=== PATIENT | male | born 1975 | race Caucasian/White ===

== ENCOUNTER → 2022-08-12 | Outpatient (CLI) | payer OTHER, SELFPAY ==
[2022-08-12 09:00] LABS: PSA,Total - Annual Screen 0.49 ng/mL (0.00-4.00); Thyroid Stim Hormone (TSH) 1.69 uIU/mL (0.358-3.74)
[2022-08-12 10:04] LABS: Hepatitis C Antibody Non-Reactive (Nonreactive)
== END | disposition home or self-care (01) ==
PROVIDERS: PCP Family Medicine; Referring Provider Family Medicine; Visit Provider Family Medicine
DX: Z00.00 Encounter for general adult medical examination without abnormal findings (principal); Z13.1 Encounter for screening for diabetes mellitus; Z12.5 Encounter for screening for malignant neoplasm of prostate; E78.2 Mixed hyperlipidemia
CPT/HCPCS: 36415; 84153; 84443; 86803; G0103

== ENCOUNTER → 2023-02-22 | Outpatient (CLI) | payer OTHER, SELFPAY ==
--- NOTE | 2023-02-22 11:48 | RAD_ITS ---
EXAM: XR LEFT SHOULDER COMPLETE, 2 OR MORE VIEWS CLINICAL INDICATION: PAIN LEFT SHOULDER TECHNIQUE: Two or more views of the left shoulder. This report was created using [employer] report generation technology. COMPARISON: None. FINDINGS: BONES/JOINTS: Unremarkable. No acute fracture. No subluxation. Normal alignment. Preservation of the joint space. No sclerotic or destructive changes observed. SOFT TISSUES: Unremarkable. No soft tissue swelling or gas. No radiopaque foreign body. RAD/Shoulder min 2 Views IMPRESSION: Negative left shoulder x-rays. Electronically Signed: Lauri Scott MD at 23:53 EDT ,
== END | disposition home or self-care (01) ==
LOC: RAD 11:45
PROVIDERS: PCP Family Medicine; Referring Provider Family Medicine; Visit Provider Family Medicine
DX: M77.8 Other enthesopathies, not elsewhere classified (principal); M25.512 Pain in left shoulder
CPT/HCPCS: 73030

== ENCOUNTER → 2024-07-23 | Outpatient (CLI) | payer OTHER, SELFPAY ==
[2024-07-23 09:38] LABS: ALB/GLOB Ratio 1.1 RATIO (0.9-2.4); AST(SGOT) 22 U/L (15-37); Alanine Aminotransfer ALT/SGPT 52 U/L (16-61); Albumin, Serum 4.1 g/dL (3.2-5.0); Alkaline Phosphatase 79 U/L (45-117); Anion Gap 5 (5-15); BUN 16 mg/dL (7-18); Calcium,Total 9.5 mg/dL (8.5-10.1); Chloride 106 mmol/L (98-107); Cholesterol 272 mg/dL (200); Creatinine, Serum 1.07 mg/dL (0.70-1.30); EST Glomerular Filtration Rate 79 mL/min (>60); Est Glom Filt Rate - Afr Amer 95 mL/min (>60); Globulin 3.6 g/dL (2.2-4.2); Glucose 100 mg/dL (74-106); High Density Lipoprotein 55 mg/dL; PSA,Total - Annual Screen 0.59 ng/mL (0.00-4.00); Protein, Total 7.7 g/dL (6.4-8.2); Sodium Level 139 mmol/L (136-145); Triglycerides 142 mg/dL; Very Low Density Lipoprotein 28 mg/dL (5-40)
== END | disposition home or self-care (01) ==
PROVIDERS: PCP Family Medicine; Referring Provider Family Medicine; Visit Provider Family Medicine
DX: Z00.00 Encounter for general adult medical examination without abnormal findings (principal); Z13.1 Encounter for screening for diabetes mellitus; E78.2 Mixed hyperlipidemia; Z12.5 Encounter for screening for malignant neoplasm of prostate
CPT/HCPCS: 36415; 80053; 80061; 84153; 84443; G0103

== ENCOUNTER → 2025-07-08 | Outpatient (CLI) | payer OTHER, SELFPAY ==
--- OUTSIDE RECORDS SUMMARY | 2025-07-08 06:20 | XMS RPT_ITS | CCD ---
Author Organization [facility] Care Team Providers Care Firing Pin Gauger Name Role Phone Mary Avila Referring Unavailable Mary Avila Attending Unavailable Mary Avila Primary Care Unavailable Assessment, Health Risk Attending Unavaila ble Mary Avila Primary Care Unavailable Assessment, Health Risk Referring Unavaila ble Results Test Name Value Interpretation Reference Range Facil itmilana CBC, Employeeon 07-23-2024 Absolute Lymph 1.85 X10 3/uL Normal 0.83-4.51 [facility] Comment on above: Order Comment: PLEAS E SEND TO Performed By: #### L 500.2900, L100.0200, L400.0100 #### [facility] [address] [place], [address] Absolute Neut 3.4 X10 3/uL Normal 2.0-7.7 [facility] Comment on above: Order Comment: PLEAS E SEND TO Performed By: #### L 500.2900, L100.0200, L400.0100 #### [facility] [address] [place], [address] Basophils/100 WBC (Bld) 1.6 % High 0-1 [facility] Comment on above: Order Comment: PLEAS E SEND TO Performed By: #### L 500.2900, L100.0200, L400.0100 #### [facility] [address] [place], [address] Eosinophils/100 WBC (Bld) 3.6 % Normal 0-5 [facility] Comment on above: Order Comment: PLEAS E SEND TO Performed By: #### L 500.2900, L100.0200, L400.0100 #### [facility] [address] [place], [address] Erythrocyte distribution width (RBC) [Ratio] 11.7 % Normal 11.6-14.6 [facility] Comment on above: Order Comment: PLEAS E SEND TO Performed By: #### L 500.2900, L100.0200, L400.0100 #### [facility] [address] [place], [address] Hematocrit (Bld) [Volume fraction] 43.9 % Normal 40-54 [facility] Comment on above: Order Comment: PLEAS E SEND TO Performed By: #### L 500.2900, L100.0200, L400.0100 #### [facility] [address] [place], [address] Hemoglobin (Bld) [Mass/Vol] 15.1 g/dL Normal 13.0-16.5 [facility] Comment on above: Order Comment: PLEAS E SEND TO Performed By: #### L 500.2900, L100.0200, L400.0100 #### [facility] [address] [place], [address] Lymphocytes/100 WBC (Bld) 28.9 % Normal 19-41 [facility] Comment on above: Order Comment: PLEAS E SEND TO Performed By: #### L 500.2900, L100.0200, L400.0100 #### [facility] [address] [place], [address] MCH (RBC) [Entitic mass] 31.2 pg Normal 27.0-32.0 [facility] Comment on above: Order Comment: PLEAS E SEND TO Performed By: #### L 500.2900, L100.0200, L400.0100 #### [facility] [address] [place], [address] MCHC (RBC) [Mass/Vol] 34.4 g/dL Normal 32-36 [facility] Comment on above: Order Comment: PLEAS E SEND TO Performed By: #### L 500.2900, L100.0200, L400.0100 #### [facility] [address] [place], [address] MCV (RBC) [Entitic vol] 90.7 fL Normal 80-94 [facility] Comment on above: Order Comment: PLEAS E SEND TO Performed By: #### L 500.2900, L100.0200, L400.0100 #### [facility] [address] [place], [address] Monocytes/100 WBC (Bld) 12.8 % High 0-10 [facility] Comment on above: Order Comment: PLEAS E SEND TO Performed By: #### L 500.2900, L100.0200, L400.0100 #### [facility] [address] [place], [address] Neutrophils/100 WBC (Bld) 52.6 % Normal 47-70 [facility] Comment on above: Order Comment: PLEAS E SEND TO Performed By: #### L 500.2900, L100.0200, L400.0100 #### [facility] [address] [place], [address] NRBC # 0.00 10 3/uL Normal 0-5 [facility] Comment on above: Order Comment: PLEAS E SEND TO Performed By: #### L 500.2900, L100.0200, L400.0100 #### [facility] [address] [place], [address] Nucleated RBC (Bld) [#/Vol] 0 10*3/uL Normal 0-5 [facility] Comment on above: Order Comment: PLEAS E SEND TO Performed By: #### L 500.2900, L100.0200, L400.0100 #### [facility] [address] [place], [address] Platelet mean volume (Bld) [Entitic vol] 10.6 fL Normal 6.2-12.0 [facility] Comment on above: Order Comment: PLEAS E SEND TO Performed By: #### L 500.2900, L100.0200, L400.0100 #### [facility] [address] [place], [address] Platelets (Bld) [#/Vol] 205 10*3/uL Normal 150-450 [facility] Comment on above: Order Comment: PLEAS E SEND TO Performed By: #### L 500.2900, L100.0200, L400.0100 #### [facility] [address] [place], [address] RBC (Bld) [#/Vol] 4.84 10*6/uL Normal 4.6-6.2 [facility] Comment on above: Order Comment: PLEAS E SEND TO Performed By: #### L 500.2900, L100.0200, L400.0100 #### [facility] [address] [place], [address] RDW SD 38.7 fl Normal 35.1-43.9 [facility] Comment on above: Order Comment: PLEAS E SEND TO Performed By: #### L 500.2900, L100.0200, L400.0100 #### [facility] [address] [place], [address] WBC (Bld) [#/Vol] 6.4 10*3/uL Normal 4.4-11.0 [facility] Comment on above: Order Comment: ALYSSA E SEND TO Performed By: #### L 500.2900, L100.0200, L400.0100 #### [facility] [address] [place], [address] Comprehensive Metabolic Prof ilon 07-23-2024 Albumin [Mass/Vol] 4.1 g/dL Normal 3.2-5.0 [facility] Comment on above: Order Comment: ALYSSA Mccartney CANCELL WHAT IS IN [facility] AND SEND TO Performed By: #### L 500.4050, L501.9520, L501.9910, L500.4100 #### [facility] [address] [place], [address] Albumin/Globulin [Mass ratio] 1.1 {ratio} Normal 0.9-2.4 [facility] Comment on above: Order Comment: PLEAS E CANCELL WHAT IS IN [facility] AND SEND TO Performed By: #### L 500.4050, L501.9520, L501.9910, L500.4100 #### [facility] [address] [place], [address] ALK P 79 U/L Normal 45-117 [facility] Comment on above: Order Comment: PLEAS E CANCELL WHAT IS IN [facility] AND SEND TO Performed By: #### L 500.4050, L501.9520, L501.9910, L500.4100 #### [facility] [address] [place], [address] ALT [Catalytic activity/Vol] 52 U/L Normal 16-61 [facility] Comment on above: Order Comment: PLEAS E CANCELL WHAT IS IN [facility] AND SEND TO Performed By: #### L 500.4050, L501.9520, L501.9910, L500.4100 #### [facility] [address] [place], [address] AST [Catalytic activity/Vol] 22 U/L Normal 15-37 [facility] Comment on above: Order Comment: PLEAS E CANCELL WHAT IS IN [facility] AND SEND TO Performed By: #### L 500.4050, L501.9520, L501.9910, L500.4100 #### [facility] [address] [place], [address] Bilirubin [Mass/Vol] 0.40 mg/dL Normal 0.20-1.00 [facility] Comment on above: Order Comment: PLEAS E CANCELL WHAT IS IN [facility] AND SEND TO Result Comment: For patients on eltrombopag therapy, use of Dimension [place] TBIL is not recommended. Performed By: #### L 500.4050, L501.9520, L501.9910, L500.4100 #### [facility] [address] [place], [address] BUN/CRE 15.0 RATIO Normal 10-20 [facility] Comment on above: Order Comment: PLEAS E CANCELL WHAT IS IN [facility] AND SEND TO Performed By: #### L 500.4050, L501.9520, L501.9910, L500.4100 #### [facility] [address] [place], [address] CA,Total 9.5 mg/dL Normal 8.5-10.1 [facility] Comment on above: Order Comment: RONALAS E CANCELL WHAT IS IN [facility] AND SEND TO Performed By: #### L 500.4050, L501.9520, L501.9910, L500.4100 #### [facility] [address] [place], [address] Chloride [Moles/Vol] 106 mmol/L Normal 98-107 [facility] Comment on above: Order Comment: ALYSSA Mccartney CANCELL WHAT IS IN [facility] AND SEND TO Performed By: #### L 500.4050, L501.9520, L501.9910, L500.4100 #### [facility] [address] [place], [address] CO2 [Moles/Vol] 28.0 mmol/L Normal 21.0-32.0 [facility] Comment on above: Order Comment: PLEAS E CANCELL WHAT IS IN [facility] AND SEND TO Performed By: #### L 500.4050, L501.9520, L501.9910, L500.4100 #### [facility] [address] [place], [address] Creatinine [Mass/Vol] 1.07 mg/dL Normal 0.70-1.30 [facility] Comment on above: Order Comment: ALYSSA Mccartney CANCELL WHAT IS IN [facility] AND SEND TO Result Comment: The validity of the calculated GFR GFRAA in patients over 70 years has not been determined. Clinical correlation is essential. Performed By: #### L 500.4050, L501.9520, L501.9910, L500.4100 #### [facility] [address] [place], [address] EST GFR - AA 95 mL/min Normal >60 [facility] Comment on above: Order Comment: ALYSSA Mccartney CANCELL WHAT IS IN [facility] AND SEND TO Result Comment: Afri can [place] GFR Calc Performed By: #### L 500.4050, L501.9520, L501.9910, L500.4100 #### [facility] [address] [place], [address] GAP 5 Normal 5-15 [facility] Comment on above: Order Comment: PLEAS E CANCELL WHAT IS IN [facility] AND SEND TO Performed By: #### L 500.4050, L501.9520, L501.9910, L500.4100 #### [facility] [address] [place], [address] GFR/1.73 sq M.predicted among non-blacks MDRD (S/P/Bld) [Vol rate/Area] 79 mL/min/{1.73_m2} Normal >60 [facility] Comment on above: Order Comment: ALYSSA Mccartney CANCELL WHAT IS IN [facility] AND SEND TO Result Comment: Non- GFR Calc Performed By: #### L 500.4050, L501.9520, L501.9910, L500.4100 #### [facility] [address] [place], [address] Globulin (S) [Mass/Vol] 3.6 g/dL Normal 2.2-4.2 [facility] Comment on above: Order Comment: ALYSSA Mccartney CANCELL WHAT IS IN [facility] AND SEND TO Performed By: #### L 500.4050, L501.9520, L501.9910, L500.4100 #### [facility] [address] [place], [address] Glucose [Mass/Vol] 100 mg/dL Normal 74-106 [facility] Comment on above: Order Comment: ALYSSA Mccartney CANCELL WHAT IS IN [facility] AND SEND TO Result Comment: Fast ing Glucose result from 100 to 125 mg/dL suggests IMPAIRED HOMEOSTASIS per A.D.A. criteria. Performed By: #### L 500.4050, L501.9520, L501.9910, L500.4100 #### [facility] [address] [place], [address] Potassium [Moles/Vol] 4.0 mmol/L Normal 3.5-5.1 [facility] Comment on above: Order Comment: ALYSSA Mccartney CANCELL WHAT IS IN [facility] AND SEND TO Performed By: #### L 500.4050, L501.9520, L501.9910, L500.4100 #### [facility] [address] [place], [address] Sodium [Moles/Vol] 139 mmol/L Normal 136-145 [facility] Comment on above: Order Comment: PLEAS E CANCELL WHAT IS IN [facility] AND SEND TO Performed By: #### L 500.4050, L501.9520, L501.9910, L500.4100 #### [facility] [address] [place], [address] T PROT 7.7 g/dL Normal 6.4-8.2 [facility] Comment on above: Order Comment: PLEAS E CANCELL WHAT IS IN [facility] AND SEND TO Performed By: #### L 500.4050, L501.9520, L501.9910, L500.4100 #### [facility] [address] [place], [address] Urea nitrogen [Mass/Vol] 16 mg/dL Normal 7-18 [facility] Comment on above: Order Comment: PLEAS E CANCELL WHAT IS IN [facility] AND SEND TO Performed By: #### L 500.4050, L501.9520, L501.9910, L500.4100 #### [facility] [address] [place], [address] [employer] 4 Albumin [Mass/Vol] 4.2 g/dL Normal 3.2-5.0 [facility] Comment on above: Order Comment: PLEAS E SEND TO Performed By: #### L 500.2900, L100.0200, L400.0100 #### [facility] [address] [place], [address] Albumin/Globulin [Mass ratio] 1.2 {ratio} Normal 0.9-2.4 [facility] Comment on above: Order Comment: PLEAS E SEND TO Performed By: #### L 500.2900, L100.0200, L400.0100 #### [facility] [address] [place], [address] ALK P 78 U/L Normal 45-117 [facility] Comment on above: Order Comment: ALYSSA E SEND TO Performed By: #### L 500.2900, L100.0200, L400.0100 #### [facility] [address] [place], [address] ALT [Catalytic activity/Vol] 53 U/L Normal 16-61 [facility] Comment on above: Order Comment: ALYSSA E SEND TO Performed By: #### L 500.2900, L100.0200, L400.0100 #### [facility] [address] [place], [address] AST [Catalytic activity/Vol] 25 U/L Normal 15-37 [facility] Comment on above: Order Comment: ALYSSA E SEND TO Performed By: #### L 500.2900, L100.0200, L400.0100 #### [facility] [address] [place], [address] Bilirubin [Mass/Vol] 0.40 mg/dL Normal 0.20-1.00 [facility] Comment on above: Order Comment: PLEJHONATAN E SEND TO Result Comment: For patients on eltrombopag therapy, use of Dimension [place] TBIL is not recommended. Performed By: #### L 500.2900, L100.0200, L400.0100 #### [facility] [address] [place], [address] Bilirubin.direct [Mass/Vol] 0.14 mg/dL Normal 0.00-0.30 [facility] Comment on above: Order Comment: ALYSSA E SEND TO Performed By: #### L 500.2900, L100.0200, L400.0100 #### [facility] [address] [place], [address] BUN/CRE 15.2 RATIO Normal 10-20 [facility] Comment on above: Order Comment: PLEAS E SEND TO Performed By: #### L 500.2900, L100.0200, L400.0100 #### [facility] [address] [place], [address] CA,Total 9.5 mg/dL Normal 8.5-10.1 [facility] Comment on above: Order Comment: PLEAS E SEND TO Performed By: #### L 500.2900, L100.0200, L400.0100 #### [facility] [address] [place], [address] Chloride [Moles/Vol] 105 mmol/L Normal 98-107 [facility] Comment on above: Order Comment: PLEAS E SEND TO Performed By: #### L 500.2900, L100.0200, L400.0100 #### [facility] [address] [place], [address] CHOL:HDL 4.70 Normal [facility] Comment on above: Order Comment: PLEAS E SEND TO Performed By: #### L 500.2900, L100.0200, L400.0100 #### [facility] [address] [place], [address] Cholesterol [Mass/Vol] 263 mg/dL High 200 [facility] Comment on above: Order Comment: RONALAS E SEND TO Result Comment: <200 mg/dL Desirable 200-240 mg/dL Borderline >240 mg/dL High Risk Performed By: #### L 500.2900, L100.0200, L400.0100 #### [facility] [address] [place], [address] Cholesterol in HDL [Mass/Vol] 56 mg/dL Normal [facility] Comment on above: Order Comment: ALYSSA Mccartney SEND TO Result Comment: The drugs N-Acetylcysteine and Metamizole may falsely depress this assay. Reference Range HDL <40 mg/dL Low HDL Cholesterol HDL >or= 60 mg/dL High HDL Cholesterol Performed By: #### L 500.2900, L100.0200, L400.0100 #### [facility] [address] [place], [address] Cholesterol in LDL [Mass/Vol] 179 mg/dL High 0-130 [facility] Comment on above: Order Comment: ALYSSA Mccartney SEND TO Performed By: #### L 500.2900, L100.0200, L400.0100 #### [facility] [address] [place], [address] Cholesterol in VLDL [Mass/Vol] 28 mg/dL Normal 5-40 [facility] Comment on above: Order Comment: ALYSSA Mccartney SEND TO Performed By: #### L 500.2900, L100.0200, L400.0100 #### [facility] [address] [place], [address] CO2 [Moles/Vol] 27.0 mmol/L Normal 21.0-32.0 [facility] Comment on above: Order Comment: ALYSSA Mccartney SEND TO Performed By: #### L 500.2900, L100.0200, L400.0100 #### [facility] [address] [place], [address] Creatinine [Mass/Vol] 1.05 mg/dL Normal 0.70-1.30 [facility] Comment on above: Order Comment: ALYSSA Mccartney SEND TO Result Comment: The validity of the calculated GFR GFRAA in patients over 70 years has not been determined. Clinical correlation is essential. Performed By: #### L 500.2900, L100.0200, L400.0100 #### [facility] [address] [place], [address] EST GFR - AA 97 mL/min Normal >60 [facility] Comment on above: Order Comment: ALYSSA Mccartney SEND TO Result Comment: Afri can [place] GFR Calc Performed By: #### L 500.2900, L100.0200, L400.0100 #### [facility] [address] [place], [address] GAP 6 Normal 5-15 [facility] Comment on above: Order Comment: ALYSSA Mccartney SEND TO Performed By: #### L 500.2900, L100.0200, L400.0100 #### [facility] [address] [place], [address] GFR/1.73 sq M.predicted among non-blacks MDRD (S/P/Bld) [Vol rate/Area] 81 mL/min/{1.73_m2} Normal >60 [facility] Comment on above: Order Comment: ALYSSA Mccartney SEND TO Result Comment: Non- GFR Calc Performed By: #### L 500.2900, L100.0200, L400.0100 #### [facility] [address] [place], [address] Globulin (S) [Mass/Vol] 3.5 g/dL Normal 2.2-4.2 [facility] Comment on above: Order Comment: ALYSSA Mccartney SEND TO Performed By: #### L 500.2900, L100.0200, L400.0100 #### [facility] [address] [place], [address] Glucose [Mass/Vol] 103 mg/dL Normal 74-106 [facility] Comment on above: Order Comment: ALYSSA Mccartney SEND TO Result Comment: Fast ing Glucose result from 100 to 125 mg/dL suggests IMPAIRED HOMEOSTASIS per A.D.A. criteria. Performed By: #### L 500.2900, L100.0200, L400.0100 #### [facility] [address] [place], [address] LDH 177 U/L Normal 87-241 [facility] Comment on above: Order Comment: ALYSSA E SEND TO Performed By: #### L 500.2900, L100.0200, L400.0100 #### [facility] [address] [place], [address] Phosphate [Mass/Vol] 4.0 mg/dL Normal 2.5-4.9 [facility] Comment on above: Order Comment: ALYSSA E SEND TO Performed By: #### L 500.2900, L100.0200, L400.0100 #### [facility] [address] [place], [address] Potassium [Moles/Vol] 4.0 mmol/L Normal 3.5-5.1 [facility] Comment on above: Order Comment: ALYSSA E SEND TO Performed By: #### L 500.2900, L100.0200, L400.0100 #### [facility] [address] [place], [address] Sodium [Moles/Vol] 138 mmol/L Normal 136-145 [facility] Comment on above: Order Comment: ALYSSA E SEND TO Performed By: #### L 500.2900, L100.0200, L400.0100 #### [facility] [address] [place], [address] T PROT 7.7 g/dL Normal 6.4-8.2 [facility] Comment on above: Order Comment: ALYSSA Mccartney SEND TO Performed By: #### L 500.2900, L100.0200, L400.0100 #### [facility] [address] [place], [address] Triglyceride [Mass/Vol] 140 mg/dL Normal [facility] Comment on above: Order Comment: ALYSSA Mccartney SEND TO Result Comment: The drugs N-Acetylcysteine and Metamizole may falsely depress this assay. Serum Triglycerides Reference Interval Normal <150 mg/dL Borderline high 150 - 199 mg/dL High 200 - 499 mg/dL Very High > or = 500 mg/dL Performed By: #### L 500.2900, L100.0200, L400.0100 #### [facility] [address] [place], [address] Urea nitrogen [Mass/Vol] 16 mg/dL Normal 7-18 [facility] Comment on above: Order Comment: ALYSSA Mccartney SEND TO Performed By: #### L 500.2900, L100.0200, L400.0100 #### [facility] [address] [place], [address] URIC 5.9 mg/dL Normal 3.5-7.2 [facility] Comment on above: Order Comment: ALYSSA Mccartney SEND TO Result Comment: The drugs N-Acetylcysteine and Metamizole may falsely depress this assay. Performed By: #### L 500.2900, L100.0200, L400.0100 #### [facility] [address] [place], [address] Lipid Profileon 07-23-2024 Cholesterol [Mass/Vol] 272 mg/dL High 200 [facility] Comment on above: Order Comment: ALYSSA Mccartney CANCELL WHAT IS IN [facility] AND SEND TO Result Comment: <200 mg/dL Desirable 200-240 mg/dL Borderline >240 mg/dL High Risk Performed By: #### L 500.4050, L501.9520, L501.9910, L500.4100 #### [facility] [address] [place], [address] Cholesterol in HDL [Mass/Vol] 55 mg/dL Normal [facility] Comment on above: Order Comment: ALYSSA Mccartney CANCELL WHAT IS IN [facility] AND SEND TO Result Comment: The drugs N-Acetylcysteine and Metamizole may falsely depress this assay. Reference Range HDL <40 mg/dL Low HDL Cholesterol HDL >or= 60 mg/dL High HDL Cholesterol Performed By: #### L 500.4050, L501.9520, L501.9910, L500.4100 #### [facility] [address] [place], [address] Cholesterol in LDL [Mass/Vol] 189 mg/dL High 0-130 [facility] Comment on above: Order Comment: ALYSSA Mccartney CANCELL WHAT IS IN [facility] AND SEND TO Performed By: #### L 500.4050, L501.9520, L501.9910, L500.4100 #### [facility] [address] [place], [address] Cholesterol in VLDL [Mass/Vol] 28 mg/dL Normal 5-40 [facility] Comment on above: Order Comment: ALYSSA Mccartney CANCELL WHAT IS IN [facility] AND SEND TO Performed By: #### L 500.4050, L501.9520, L501.9910, L500.4100 #### [facility] [address] [place], [address] Triglyceride [Mass/Vol] 142 mg/dL Normal [facility] Comment on above: Order Comment: ALYSSA Mccartney CANCELL WHAT IS IN [facility] AND SEND TO Result Comment: The drugs N-Acetylcysteine and Metamizole may falsely depress this assay. Serum Triglycerides Reference Interval Normal <150 mg/dL Borderline high 150 - 199 mg/dL High 200 - 499 mg/dL Very High > or = 500 mg/dL Performed By: #### L 500.4050, L501.9520, L501.9910, L500.4100 #### [facility] [address] [place], [address] PSA,Total - Annual Screenon 07-23-2024 PSA,TOT SCREEN 0.59 ng/mL Normal 0.00-4.00 [facility] Comment on above: Order Comment: ALYSSA Mccartney CANCELL WHAT IS IN [facility] AND SEND TO Result Comment: This test was performed using the TPSA assay method for the [employer] chemistry system. Values obtained with different assay methods cannot be used interchangably. When changing PSA assays in the course of monitoring a patient, additional sequential testing should be carried out to confirm baseline values. Performed By: #### L 500.4050, L501.9520, L501.9910, L500.4100 #### [facility] [address] [place], [address] Thyroid Stim Hormone (TSH)on 07-23-2024 TSH 2.410 uIU/mL Normal 0.358-3.740 [facility] Comment on above: Order Comment: ALYSSA Mccartney CANCELL WHAT IS IN [facility] AND SEND TO Performed By: #### L 500.4050, L501.9520, L501.9910, L500.4100 #### [facility] [address] [place], [address] Urinalysis, Employeeon 07-23 BILIRUBIN URINE Normal Negative [facility] Comment on above: Order Comment: ALYSSA Mccartney SEND TO CLEAN CATCH Result Comment: NOT WANTED Performed By: #### L 500.2900, L100.0200, L400.0100 #### [facility] [address] [place], [address] Clarity (U) Normal Clear [facility] Comment on above: Order Comment: ALYSSA Mccartney SEND TO CLEAN CATCH Result Comment: NOT WANTED Performed By: #### L 500.2900, L100.0200, L400.0100 #### [facility] [address] [place], [address] Color (U) Normal Yellow [facility] Comment on above: Order Comment: ALYSSA E SEND TO DR.MCCLAY ОЛЬГА CARR Result Comment: NOT WANTED Performed By: #### L 500.2900, L100.0200, L400.0100 #### [facility] [address] [place], [address] GLUCOSE, UR Normal Normal [facility] Comment on above: Order Comment: PLEJHONATAN E SEND TO DR.MCCLAY ROLON CATCH Result Comment: NOT WANTED Performed By: #### L 500.2900, L100.0200, L400.0100 #### [facility] [address] [place], [address] KETONE UR Normal Negative [facility] Comment on above: Order Comment: ALYSSA E SEND TO DR.MCCLAY ОЛЬГА CARR Result Comment: NOT WANTED Performed By: #### L 500.2900, L100.0200, L400.0100 #### [facility] [address] [place], [address] LEUK ESTERASE Normal Negative [facility] Comment on above: Order Comment: ALYSSA Mccartney SEND TO DR.MCCLAY ОЛЬГА CARR Result Comment: NOT WANTED Performed By: #### L 500.2900, L100.0200, L400.0100 #### [facility] [address] [place], [address] Nitrite Ql (U) Normal Negative [facility] Comment on above: Order Comment: ALYSSA E SEND TO DR.MCCLAY ROLON CATCH Result Comment: NOT WANTED Performed By: #### L 500.2900, L100.0200, L400.0100 #### [facility] [address] [place], [address] OCCULT BLOOD-UR Normal Negative [facility] Comment on above: Order Comment: ALYSSA Mccartney SEND TO DR.MCCLAY ROLON CATCH Result Comment: NOT WANTED Performed By: #### L 500.2900, L100.0200, L400.0100 #### [facility] [address] [place], [address] pH UR Normal 5.0 - 8.0 [facility] Comment on above: Order Comment: PLEAS E SEND TO DR.MCCLAY ROLON CATCH Result Comment: NOT WANTED Performed By: #### L 500.2900, L100.0200, L400.0100 #### [facility] [address] [place], [address] PROT DIPSTX Normal Negative [facility] Comment on above: Order Comment: PLEAS E SEND TO DR.MCCLAY ROLON CATCH Result Comment: NOT WANTED Performed By: #### L 500.2900, L100.0200, L400.0100 #### [facility] [address] [place], [address] SP.GR. DIPSTX Normal 1.002-1.030 [facility] Comment on above: Order Comment: PLEAS E SEND TO DR.MCCLAY ROLON CATCH Result Comment: NOT WANTED Performed By: #### L 500.2900, L100.0200, L400.0100 #### [facility] [address] [place], [address] UR Preservative Normal [facility] Comment on above: Order Comment: PLEAS E SEND TO DR.MCCLAY ROLON CATCH Result Comment: NOT WANTED Performed By: #### L 500.2900, L100.0200, L400.0100 #### [facility] [address] [place], [address] UROBILI Normal Normal [facility] Comment on above: Order Comment: PLEAS E SEND TO DR.MCCLAY ROLON CATCH Result Comment: NOT WANTED Performed By: #### L 500.2900, L100.0200, L400.0100 #### [facility] [address] [place], [address] COVID-19 virus antigen assay Ordered By: Satnam Ordonez on 07-14-2023 SARS-CoV-2 (COVID-19) Ag IA.rapid Ql (Resp) [facility] Absolute lymphocyte counton 08-12-2022 Lymphocytes Auto (Unsp spec) [#/Vol] 1.69 10*3/uL 0.83-4.51 [facility] Work Phone: Absolute reticulocyte counto n 08-12-2022 Reticulocytes (Bld) [#/Vol] 0.00 10*3/uL 0-5 [facility] Work Phone: Basophil percentageon 2021 Basophil percentage 3.8 mg/dL 2.5-4.9 [facility] Work Phone: Bilirubin [Mass/Vol] 0.80 mg/dL 0.20-1.00 [facility] Work Phone: Comment on above: For patients on eltr ombopag therapy, use of Dimension [place] TBIL is not recommended. Chloride [Moles/Vol] 106 mmol/L 98-107 [facility] Work Phone: Cholesterol [Mass/Vol] 233 mg/dL <200 [facility] Work Phone: Comment on above: <200 mg/dL Desirable 200-240 mg/dL Borderline >240 mg/dL High Risk Glucose [Mass/Vol] 97 mg/dL 74-106 [facility] Work Phone: Neutrophils (Bld) [#/Vol] 2.8 10*3/uL 2.0-7.7 [facility] Work Phone: Potassium [Moles/Vol] 4.0 mmol/L 3.5-5.1 [facility] Work Phone: Protein [Mass/Vol] 7.7 g/dL 6.4-8.2 [facility] Work Phone: Sodium [Moles/Vol] 140 mmol/L 136-145 [facility] Work Phone: Triglyceride [Mass/Vol] 147 mg/dL <199 [facility] Work Phone: Comment on above: The drugs N-Acetylcy steine and Metamizole may falsely depress this assay.Serum Triglycerides Reference Interval Normal <150 mg/dL Borderline high 150 - 199 mg/dL High 200 - 499 mg/dL Very High > or = 500 mg/dL WBC (Bld) [#/Vol] 5.4 10*3/uL 4.4-11.0 [facility] Work Phone: Bilirubin Test strip Ql (U)o n 08-12-2022 Bilirubin Ql (U) Negative Negative [facility] Work Phone: Blood erythrocytes count (nu mber/volume)on 08-12-2022 RBC (Bld) [#/Vol] 4.52 10*6/uL 4.6-6.2 [facility] Work Phone: Blood hemoglobin measurement (mass/volume)on 08-12-2022 Hemoglobin (Bld) [Mass/Vol] 15.0 g/dL 13.0-16.5 [facility] Work Phone: Blood platelet mean volumeon 08-12-2022 Platelet mean volume (Bld) [Entitic vol] 10.4 fL 6.2-12.0 [facility] Work Phone: Determination of erythrocyte mean corpuscular volume (MCV)on 08-12-2022 MCV (RBC) [Entitic vol] 91.8 fL 80-94 [facility] Work Phone: Direct bilirubinon 2 Bilirubin.direct [Mass/Vol] 0.18 mg/dL 0.00-0.30 [facility] Work Phone: Hematocrit Auto (Bld) [Volum e fraction]on 08-12-2022 Hematocrit (Bld) [Volume fraction] 41.5 % 40-54 [facility] Work Phone: Ketones Test strip Ql (U)on 08-12-2022 Ketones Ql (U) Negative Negative [facility] Work Phone: Laboratory - Chemistry and C hemistry - challengeon 08-12-2022 ALP [Catalytic activity/Vol] 68 U/L 45-117 [facility] Work Phone: ALT [Catalytic activity/Vol] 32 U/L 16-61 [facility] Work Phone: Cholesterol.total/Ch olesterol in HDL [Mass ratio] 3.70 {ratio} [facility] Work Phone: CO2 [Moles/Vol] 27.0 mmol/L 21.0-32.0 [facility] Work Phone: Globulin (S) [Mass/Vol] 3.5 g/dL 2.2-4.2 [facility] Work Phone: Urea nitrogen/Creatinine [Mass ratio] 15.6 mg/mg 10-20 [facility] Work Phone: Laboratory - Hematology and Cell countson 08-12-2022 Erythrocyte distribution width (RBC) [Entitic vol] 38.9 fL 35.1-43.9 [facility] Work Phone: Erythrocyte distribution width (RBC) [Ratio] 11.6 % 11.6-14.6 [facility] Work Phone: MCH (RBC) [Entitic mass] 33.2 pg 27.0-32.0 [facility] Work Phone: Nucleated RBC/100 WBC (Bld) [Ratio] 0 % 0-5 [facility] Work Phone: MCHC Auto (RBC) [Mass/Vol]on 08-12-2022 MCHC (RBC) [Mass/Vol] 36.1 g/dL 32-36 [facility] Work Phone: Nitrite Test strip Ql (U)on 08-12-2022 Nitrite Ql (U) Negative Negative [facility] Work Phone: No Panel Informationon 08-12 Estimated GFR (MDRD) Amer 109 mL/min >60 [facility] Work Phone: Comment on above: GFR Calc Estimated GFR (MDRD) Non-Af Amer 90 mL/min >60 [facility] Work Phone: Comment on above: Non- GFR Calc Hepatitis C Antibody Non-Reactive Nonreactive [facility] Work Phone: Comment on above: Non Reactive: < 0.8 Equivocal: >/= 0.8 to < 1.0 Reactive: >/= 1.0The [facility] recommends that a reactive/equivocal HCV antibody result be followed up by the HCV Nucleic Acid Amplificationtest (033749) Prostate Specific Antigen Screen 0.49 ng/mL 0.00-4.00 [facility] Work Phone: Comment on above: This test was perfor med using the TPSA assay method for [employer] chemistry system. Values obtained with differentassay methods cannot be used interchangably.When changing PSA assays in the course of monitoring apatient, additional sequential testing should be carriedout to confirm baseline values. Thyroid Stimulating Hormone (TSH) 1.69 uIU/mL 0.358-3.74 [facility] Work Phone: Platelets bldon 08-12-2022 Platelets (Bld) [#/Vol] 193 10*3/uL 150-450 [facility] Work Phone: Protein Test strip Ql (U)on 08-12-2022 Protein Ql (U) Negative Negative [facility] Work Phone: Segmented neutrophils/100 WB C Auto (Bld)on 08-12-2022 Segmented neutrophils/100 WBC (Bld) 51.9 % 47-70 [facility] Work Phone: Serum or plasma albumin cami urement (mass/volume)on 08-12-2022 Albumin [Mass/Vol] 4.2 g/dL 3.2-5.0 [facility] Work Phone: Serum or plasma albumin/glob ulin mass ratioon 08-12-2022 Albumin/Globulin [Mass ratio] 1.2 {ratio} 0.9-2.4 [facility] Work Phone: Serum or plasma calcium cami urement (mass/volume)on 08-12-2022 Calcium [Mass/Vol] 9.2 mg/dL 8.5-10.1 [facility] Work Phone: Serum or plasma cholesterol in HDL measurement (mass/volume)on 08-12-2022 Cholesterol in HDL [Mass/Vol] 63 mg/dL >40 [facility] Work Phone: Comment on above: The drugs N-Acetylcy steine and Metamizole may falsely depress this assay. Reference Range HDL <40 mg/dL Low HDL Cholesterol HDL >or= 60 mg/dL High HDL Cholesterol Serum or plasma cholesterol in VLDL measurement (mass/volume)on 08-12-2022 Cholesterol in VLDL [Mass/Vol] 29 mg/dL 5-40 [facility] Work Phone: Serum or plasma creatinine m easurement (mass/volume)on 08-12-2022 Creatinine [Mass/Vol] 0.96 mg/dL 0.70-1.30 [facility] Work Phone: Comment on above: The validity of the calculated GFR & GFRAA in patients over 70 years has not been determined. Clinical correlation is essential. Serum or plasma low density lipoprotein (LDL) cholesterol measurement (mass/volume)on 08-12-2022 Cholesterol in LDL [Mass/Vol] 141 mg/dL 0-130 [facility] Work Phone: Serum or plasma urea nitroge n measurement (mass/volume)on 08-12-2022 Urea nitrogen [Mass/Vol] 15 mg/dL 7-18 [facility] Work Phone: Serum or plasma uric acid me asurement (mass/volume)on 08-12-2022 Urate [Mass/Vol] 5.2 mg/dL 3.5-7.2 [facility] Work Phone: Comment on above: The drugs N-Acetylcy steine and Metamizole may falsely depress this assay. Thin prep Papanicolaou smear with manual screeningon 08-12-2022 Thin prep Papanicolaou smear with manual screening 16 U/L 15-37 [facility] Work Phone: Thin prep Papanicolaou smear with manual screening 7 5-15 [facility] Work Phone: Thin prep Papanicolaou smear with manual screening 168 U/L 87-241 [facility] Work Phone: Urine blood detectionon 07-30 RBC Ql (U) Negative Negative [facility] Work Phone: Urine clarityon 08-12-2022 Clarity (U) Clear Clear [facility] Work Phone: Urine color determinationon 08-12-2022 Color (U) Yellow Yellow [facility] Work Phone: Urine glucose detectionon Glucose Ql (U) Normal mg/dl Normal [facility] Work Phone: Urine leukocyte esterase det ection by dipstickon 08-12-2022 Leukocyte esterase Test strip Ql (U) Negative Negative [facility] Work Phone: Urine pHon 08-12-2022 pH (U) 6.0 [pH] 5.0 - 8.0 [facility] Work Phone: Urine specific gravity measu rementon 08-12-2022 Specific gravity (U) [Rel density] 1.020 1.002-1.030 [facility] Work Phone: Urobilinogen Auto test strip Ql (U)on 08-12-2022 Urobilinogen Ql (U) Normal mg/dl Normal [facility] Work Phone: PSAon 03-03-2021 Prostate Specific Antigen 0.47 ng/mL Normal 0.00-4.00 [facility] ([place]) Comment on above: Performed By: #### P SA #### Niles[address] [place], [place] [address] GLUon 02-15-2021 Glucose [Mass/Vol] 91 mg/dL Normal 70-110 [facility] ([place]) Comment on above: Performed By: #### G VITO, LIPID #### [facility] [address] [place] [address] LIPIDon 02-15-2021 Cholesterol [Mass/Vol] 199 mg/dL Normal 50-199 [facility] ([place]) Comment on above: Result Comment: Chol esterol Reference Interval: Less than 200 Desirable 200-239 Borderline high risk 240 and above High risk Performed By: #### G VITO, LIPID #### [facility] [address] [place] [address] Cholesterol in HDL [Mass/Vol] 53 mg/dL Normal 40-59 [facility] ([place]) Comment on above: Performed By: #### Jelani PADRON, LIPID #### [facility] [address] [place] [address] Cholesterol in LDL [Mass/Vol] 113 mg/dL Normal 0-129 [facility] ([place]) Comment on above: Performed By: #### Jelani PADRON, LIPID #### [facility] [address] [place] [address] Triglyceride [Mass/Vol] 163 mg/dL High 3-149 [facility] ([place]) Comment on above: Performed By: #### Jelani PADRON, LIPID #### [facility] [address] [place] [address] .GFRon 04-20-2020 GFR Non- 67 ml/min/1.73sqm Normal [facility] ([place]) Comment on above: Result Comment: GFR Population mean for , Non- Americans Ages 20-29 = 116 mL/min/1.73 sq.m. Ages 30-39 = 107 mL/min/1.73 sq.m. Ages 40-49 = 99 mL/min/1.73 sq.m. Ages 50-59 = 93 mL/min/1.73 sq.m. Ages 60-69 = 85 mL/min/1.73 sq.m. Ages 70+ = 75 mL/min/1.73 sq.m. Chronic Kidney Disease: Less than 60 mL/min/1.73 square meters End Stage Renal Disease: Less than 15 mL/min/1.73 square meters Performed By: #### P SA, LIPID, CMP, GFR #### [address] [address] GFR 81 ml/min/1.73sqm Normal [facility] ([place]) Comment on above: Result Comment: GFR Population mean for , Non- Americans Ages 20-29 = 116 mL/min/1.73 sq.m. Ages 30-39 = 107 mL/min/1.73 sq.m. Ages 40-49 = 99 mL/min/1.73 sq.m. Ages 50-59 = 93 mL/min/1.73 sq.m. Ages 60-69 = 85 mL/min/1.73 sq.m. Ages 70+ = 75 mL/min/1.73 sq.m. Chronic Kidney Disease: Less than 60 mL/min/1.73 square meters End Stage Renal Disease: Less than 15 mL/min/1.73 square meters Performed By: #### P SA, LIPID, CMP, GFR #### [address] [address] CMPon 04-20-2020 Albumin Level 4.5 G/dL Normal 3.5-5.0 [facility] ([place]) Comment on above: Performed By: #### P SA, LIPID, CMP, GFR #### [address] [address] Albumin/Globulin [Mass ratio] 1.6 {ratio} Normal 1.1-2.5 [facility] ([place]) Comment on above: Performed By: #### P SA, LIPID, CMP, GFR #### [address] [address] ALP [Catalytic activity/Vol] 71 U/L Normal 40-135 [facility] ([place]) Comment on above: Performed By: #### P SA, LIPID, CMP, GFR #### [address] [address] ALT [Catalytic activity/Vol] 22 U/L Normal 10-35 [facility] ([place]) Comment on above: Performed By: #### P SA, LIPID, CMP, GFR #### [address] [address] AST [Catalytic activity/Vol] 11 U/L Normal 10-40 [facility] ([place]) Comment on above: Performed By: #### P SA, LIPID, CMP, GFR #### [address] [address] Bili Total 0.7 mg/dL Normal 0.2-1.0 [facility] ([place]) Comment on above: Result Comment: Use of this assay is not recommended for patients undergoing treatment with eltrombopag due to the potential for falsely elevated results. Performed By: #### P SA, LIPID, CMP, GFR #### [address] [address] BUN/Creatinine Ratio 18 ratio Normal 7-27 [facility] ([place]) Comment on above: Performed By: #### P SA, LIPID, CMP, GFR #### [address] [address] Calcium [Mass/Vol] 9.3 mg/dL Normal 8.4-10.2 [facility] ([place]) Comment on above: Performed By: #### P SA, LIPID, CMP, GFR #### [address] [address] Chloride [Moles/Vol] 101 mmol/L Normal 98-107 [facility] ([place]) Comment on above: Performed By: #### P SA, LIPID, CMP, GFR #### [address] [address] CO2 [Moles/Vol] 28 mmol/L Normal 22-29 [facility] ([place]) Comment on above: Performed By: #### P SA, LIPID, CMP, GFR #### [address] [address] Creatinine [Mass/Vol] 1.19 mg/dL Normal 0.70-1.30 [facility] ([place]) Comment on above: Performed By: #### P SA, LIPID, CMP, GFR #### [address] [address] Electrolyte Balance 8.0 mEq/L Normal [facility] ([place]) Comment on above: Performed By: #### P SA, LIPID, CMP, GFR #### [address] [address] Globulin 2.9 G/dL Normal [facility] ([place]) Comment on above: Performed By: #### P SA, LIPID, CMP, GFR #### [address] [address] Glucose [Mass/Vol] 93 mg/dL Normal 70-105 [facility] ([place]) Comment on above: Performed By: #### P SA, LIPID, CMP, GFR #### [address] [address] Potassium [Moles/Vol] 4.2 mmol/L Normal 3.5-5.1 [facility] ([place]) Comment on above: Performed By: #### P SA, LIPID, CMP, GFR #### [address] [address] Sodium [Moles/Vol] 137 mmol/L Normal 136-145 [facility] ([place]) Comment on above: Performed By: #### P SA, LIPID, CMP, GFR #### [address] [address] Total Protein 7.4 G/dL Normal 6.4-8.2 [facility] ([place]) Comment on above: Performed By: #### P SA, LIPID, CMP, GFR #### [address] [address] Urea nitrogen [Mass/Vol] 21 mg/dL High 7-18 [facility] ([place]) Comment on above: Performed By: #### P SA, LIPID, CMP, GFR #### [address] [address] LIPIDon 04-20-2020 Cholesterol [Mass/Vol] 208 mg/dL High 0-200 [facility] ([place]) Comment on above: Result Comment: Chol esterol Reference Interval: Less than 200 Desirable 200-239 Borderline high risk 240 and above High risk Performed By: #### P SA, LIPID, CMP, GFR #### [address] [address] Cholesterol in HDL [Mass/Vol] 65 mg/dL High 40-60 [facility] ([place]) Comment on above: Performed By: #### P SA, LIPID, CMP, GFR #### [address] [place], [place] [address] Cholesterol in LDL [Mass/Vol] 130 mg/dL Normal 0-130 [facility] ([place]) Comment on above: Performed By: #### P SA, LIPID, CMP, GFR #### [address] [place], [place] [address] Triglyceride [Mass/Vol] 63 mg/dL Normal 0-150 [facility] ([place]) Comment on above: Result Comment: Trig lyceride Reference Interval: Less than 150 Normal 150-199 Borderline high risk 200-499 High risk 500 or higher Very high risk Performed By: #### P SA, LIPID, CMP, GFR #### [address] [place], [place] [address] PSAon 04-20-2020 Prostate Specific Antigen 0.60 ng/mL Normal 0.00-4.00 [facility] ([place]) Comment on above: Performed By: #### P SA, LIPID, CMP, GFR #### [address] [address] Encounters Encounter Date Encounter Type Care Provider Facility Start: 08-22-2024 Encounter for genera l adult medical examination without abnormal findings Mary Avila [facility] Start: 07-23-2024 ambulatory Health Risk Assessment Facility:[facility] Start: 07-23-2024 End: 07-23-2024 ambulatory Mary Avila Facility:[facility] Start: 07-14-2023 End: 07-29-2023 ambulatory [facility] Work Phone: Start: 07-14-2023 End: 07-29-2023 Discharged Recurring [facility] Start: 02-22-2023 End: 02-22-2023 ambulatory [facility] Work Phone: Start: 02-22-2023 End: 02-22-2023 Patient encounter procedure [facility]-Radiology, [facility] Start: 08-12-2022 Registered Referred [facility] Start: 08-12-2022 End: 08-12-2022 ambulatory [facility] Work Phone: Start: 08-12-2022 End: 08-12-2022 Patient encounter procedure [facility]-Laboratory Procedures Date Procedure Procedure Detail Performing Clinician Start: 07-14-2023 Viral antigen assay Start: 02-22-2023 Plain X-ray of shoulder Immunizations Immunization Date Immunization Notes Care Provider Fa cility 07-27-2023 influenza, injectabl e, quadrivalent, preservative free [facility] 07-29-2022 influenza, injectabl e, quadrivalent, preservative free [facility] 07-29-2022 influenza, seasonal, injectable [facility] 07-27-2021 influenza, injectabl e, quadrivalent, preservative free [facility] 07-27-2021 influenza, seasonal, injectable [facility] Payers Date Payer Category Payer Self-pay 2024 Unknown [id number] Unknown [id number] Unknown [id number] Unknown [id number] Social History Date Type Detail Facility Tobacco smoking stat [facility] Unknown if ever smoked [facility] Work Phone: Start: 1975 Sex Assigned At Male [facility] Evaluation note Note Date & Type Note Facility Evaluation note No assessment information availa ble [facility] Work Phone: Summary Purpose Family History No Family History Records FoundNo Family History Records Found Advance Directives No Advanced Directives Records FoundNo Advanced Directives Records Found Chief Complaint and Reason for Visit Chief Complaint EMPLOYEE HEALTH Additional Source Comments (unrecognized sect ion and content) No Status Records FoundNo Status Records Found INFORMATION SOURCE (unrecogn ized section and content) DATE CREATED AUTHOR 03/04/2021 [facility] ([place]) DATE CREATED AUTHOR AUTHOR'S ORGANIZ ATION 08/24/2024 [facility] Goals (unrecognized section and content) Goals may be documented in a n alternate sectionGoals may be documented in an alternate sectionGoals may be documented in an alternate section Care Teams (unrecognized sec tion and content) Team Status: Active Member Role Status Dates Dr. Mary Avila , DO Primary Care Provider Active Team Status: Inactive Member Role Status Dates Dr. Mary Avila , Primary Care Pro vider, Attending Provider, Referring Provider Active Team Status: Inactive Member Role Status Dates Dr. Mary Avila , DO Primary Care Provider Active Dr. Satnam Ordonez MD Attending Provider, Referring Pr ovider Active FOR RECORDS PERTAINING TO PATIENTS WHO ARE OR HAVE BEEN ENROLLED IN A CHEMICAL DEPENDENCY/SUBSTANCEABUSE PROGRAM, SOME INFORMATION MAY BE OMITTED. This clinical summary was aggregated from multiple sources. Caution should be exercised in using it in the provision of clinical care. This summary normalizes information from multiple sources, and as a consequence, information in this document may materially change the coding, format and clinical context of patient data. In addition, data may be omitted in some cases. CLINICAL DECISIONS SHOULD BE BASED ON THE PRIMARY CLINICAL RECORDS. [facility]. provides no warranty or guarantee of the accuracy or completeness of information in this document.
[2025-07-08 07:49] LABS: PSA,Total - Annual Screen 0.48 ng/mL (0.02-4.00); Vitamin D,25 Hydroxy 23.9 ng/mL (30-100)
== END | disposition home or self-care (01) ==
PROVIDERS: PCP Family Medicine; Referring Provider Family Medicine; Visit Provider Family Medicine
DX: Z00.00 Encounter for general adult medical examination without abnormal findings (principal); Z13.29 Encounter for screening for other suspected endocrine disorder; E78.2 Mixed hyperlipidemia; E55.9 Vitamin D deficiency, unspecified; R03.0 Elevated blood-pressure reading, without diagnosis of hypertension; Z12.5 Encounter for screening for malignant neoplasm of prostate; Z13.0 Encounter for screening for diseases of the blood and blood-forming organs and certain disorders involving the immune mechanism; Z13.1 Encounter for screening for diabetes mellitus
CPT/HCPCS: 36415; 82306; 84153; 84443; G0103